=== PATIENT | male | born 1950 ===

== ENCOUNTER 2020-10-19 10:06 | Outpatient (CLI) | payer MEDICARE, SELFPAY ==
[2020-10-19 16:25] LABS: Alanine Aminotransferase 26 U/L (4-50); Albumin Level 4.1 g/dL (3.5-5.1); Alkaline Phosphatase 99 U/L (38-126); Anion Gap 6 mmol/L (8-16); Aspartate Amino Transferase 27 U/L (17-59); Bilirubin,Total 0.7 mg/dL (0.2-1.3); Blood Urea Nitrogen 21 mg/dL (9-20); Calcium 9.3 mg/dL (8.4-10.2); Carbon Dioxide 32 mmol/L (22-30); Chloride 100 mmol/L (98-107); Estimated Glomerular Filt Rate 43; Glucose 150 mg/dL (75-110); Potassium 4.1 mmol/L (3.4-5.0); Sodium 138 mmol/L (137-145)
[2020-10-19 16:36] LABS: LDL Cholesterol Direct 40 mg/dL
[2020-10-19 16:37] LABS: Vitamin D 25 Hydroxy 29.9 ng/mL
[2020-10-19 16:52] LABS: Creatinine Urine 51.4 mg/dL
[2020-10-19 17:00] LABS: MALB Creatinine Ratio < 11.7 mg/g (0-30); Microalbumin Urine Random < 6.0 mg/L (0-16.7)
== END 2020-10-19 10:07 | disposition home or self-care (01) ==
LOC: ANHWCLAB 10:15
PROVIDERS: PCP Family Medicine; Referring Provider Internal Medicine Endocrinology, Diabetes & Metabolism; Visit Provider Internal Medicine Endocrinology, Diabetes & Metabolism
DX: R79.89 Other specified abnormal findings of blood chemistry (principal); E11.22 Type 2 diabetes mellitus with diabetic chronic kidney disease; N18.30 Chronic kidney disease, stage 3 unspecified; Z79.4 Long term (current) use of insulin; G62.9 Polyneuropathy, unspecified
CPT/HCPCS: 36415; 80053; 82043; 82306; 82607; 83721; 84443